=== PATIENT | female | born 1935 | race Caucasian/White ===

== ENCOUNTER 2017-01-09 07:00 | Day surgery (SDC) | payer MEDICARE, BC ==
[~2017-01-09 07:00] MED LIST: Lactated Ringers 1,000 ML IV SCH; Lidocaine 1%/Sod Bicarbonate in NS 8.4% 1 ML Syringe IV PRN; Sodium Chloride 0.9% 10 ML Syringe FLUSH PRN
[2017-01-09] MEDS ORDERED: Propofol 200 MG/20 ML SDV ONE (07:14)
--- NOTE | 2017-01-09 07:24 | PCM.PREANE ---
Preanesthetic Assessment - Anesthesia/Transfusion/Family Hx Anesthesia History: Prior Anesthesia Without Reaction Type of Anesthesia Reaction: Unknown Family History of Anesthesia Reaction: No Transfusion History: Unknown Type of Transfusion Reactions: Reports: Other (see below) - Review of Systems General: No Symptoms Pulmonary: No Symptoms Cardiovascular: No Symptoms, Other (HTN,hyperlipidemia) Gastrointestinal: No symptoms Neurological: No Symptoms Other: Reports: Diabetes - Physical Assessment NPO Status Date: 01/08/17 NPO Status Time: 18:00 Pulse: 70 O2 Sat by Pulse Oximetry: 100 Respiratory Rate: 16 Blood Pressure: 174/77 Weight: 54 kg ASA Class: 2 Mental Status: Alert & Oriented x3 Airway Class: Mallampati = 2 Dentition: Reports: Dentures (upper) Thyro-Mental Finger Breadths: 3 Mouth Opening Finger Breadths: 3 ROM/Head Extension: Full Lungs: Clear to auscultation, Normal respiratory effort Cardiovascular: Regular Rate, Regular Rhythm - Allergies Allergies/Adverse Reactions: Allergies Allergy/AdvReac Type Severity Reaction Status Date / Time No Known Allergies Allergy Verified 01/08/17 16:32 - Blood Blood Available: No Product(s) Available: None - Anesthesia Plan Pre-Op Medication Ordered: None - Acknowledgements Anesthesia Type Planned: MAC Pt an Appropriate Candidate for the Planned Anesthesia: Yes Alternatives and Risks of Anesthesia Discussed w Pt/Guardian: Yes Pt/Guardian Understands and Agrees with Anesthesia Plan: Yes PreAnesthesia Questionnaire HEENT History: Reports: Impaired vision, Other (see below) Other HEENT History: excessive cerumen, wears glasses, upper denture Cardiovascular History: Reports: High cholesterol, Hypertension Respiratory History: Reports: None Gastrointestinal History: Reports: None Genitourinary History: Reports: Other (see below) Other Genitourinary History: UTI, overactive bladder 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: Musculoskeletal History: Reports: Other (see below) Other Musculoskeletal History: osteopenia Neurological History: Reports: Other (see below) Other Neuro History: postherpetic neuralgia Psychiatric History: Reports: None Endocrine/Metabolic History: Reports: Diabetes, type II Hematologic History: Reports: None Immunologic History: Reports: None Oncologic (Cancer) History: Reports: None Dermatologic History: Reports: None - Past Surgical History Head Surgeries/Procedures: Reports: None HEENT Surgical History: Reports: Tonsillectomy Female Surgical History: Reports: section - SUBSTANCE USE Smoking Status *Q: Never Smoker Recreational Drug Use History: No - HOME MEDS Home Medications: Home Meds Alendronate Sodium [Fosamax] 70 mg PO SA 01/08/17 [History] Lisinopril 20 mg PO DAILY 01/08/17 [History] Oxybutynin 5 mg PO DAILY 01/08/17 [History] Pregabalin [Lyrica] 50 mg PO DAILY 01/08/17 [History] Vit A/C/E AC/Znox/Cupric Oxide [Eye Vitamin-Minerals Tablet] 1 tab PO DAILY 10/26 [History] atorvaSTATin Calcium [Atorvastatin Calcium] 20 mg PO BEDTIME 01/08/17 [History] glipiZIDE [Glipizide ER] 5 mg PO DAILY 01/08/17 [History] metFORMIN [Glucophage] 500 mg PO BID 01/08/17 [History] - CURRENT (IN HOUSE) MEDS Current Meds: Current Medications Lactated Ringer's (Ringers, Lactated) 1,000 mls @ 125 mls/hr IV ASDIRECTED TANIA Lidocaine/Sodium Bicarbonate (Buffered Lidocaine 1% In Ns 8.4%) 0.25 ml IV ONETIME PRN PRN Reason: Prior to IV Start Sodium Chloride (Saline Flush) 10 ml FLUSH ASDIRECTED PRN PRN Reason: Keep Vein Open Discontinued Medications Propofol (Diprivan 20 Ml) Confirm Administered Dose 200 mg .ROUTE .STK-MED ONE Stop: 01/09/17 07:15
--- NOTE | 2017-01-09 08:23 | PCM48HPAN ---
Post Anesthesia Note - EVALUATION WITHIN 48HRS OF ANESTHETIC Vital Signs in Normal Range: Yes Patient Participated in Evaluation: Yes Respiratory Function Stable: Yes Airway Patent: Yes Cardiovascular Function Stable: Yes Hydration Status Stable: Yes Pain Control Satisfactory: Yes Nausea and Vomiting Control Satisfactory: Yes Mental Status Recovered: Yes
[2017-01-09 08:29] VITALS: BP 147/65
[2017-01-09] MEDS ORDERED: Glycopyrrolate 0.2 MG/ML 2 ML SDV ONE (08:30)
--- NOTE | 2017-01-09 08:30 | PCM.OPNOTE ---
- General Post-Op/Procedure Note Date of Surgery/Procedure: 01/09/17 Operative Procedure(s): colonoscopy Findings: uncomplicated moderate size sigmoid diverticuli Pre Op Diagnosis: positive Hemoccult Post-Op Diagnosis: uncomplicated sigmoid diverticulosis Anesthesia Technique: MAC, Moderate sedation Primary Surgeon: Marcelino Tellez Pathology: none EBL in mLs: 0 Complications: None Condition: Good Free Text/Narrative:: After adequate IV sedation and analgesia was obtained the patient was placed on her left side. Perianal inspection and digital rectal examination were performed next, and were unremarkable. A lubricated colonoscope was inserted into the rectum and advanced to the cecum without difficulty. The bowel preparation was excellent. The cecum, right colon, transverse, and descending colons were endoscopically normal with no mass lesions or inflammatory changes seen. The sigmoid had moderate size diverticuli scattered throughout its course. The sigmoid musculature was slightly hypertrophied. The rectum in both views was unremarkable. Air was removed as I finished the procedure which she tolerated well. Manager Radiation photographs were taken for the patient and for the record.
== END 2017-01-09 08:46 | disposition home or self-care (01) ==
LOC: JD.SDS 07:00
PROVIDERS: ATTEND Surgery
DX: K57.30 Diverticulosis of large intestine without perforation or abscess without bleeding (principal); I10 Essential (primary) hypertension; E78.5 Hyperlipidemia, unspecified; E11.9 Type 2 diabetes mellitus without complications; Z79.84 Long term (current) use of oral hypoglycemic drugs; Z79.899 Other long term (current) drug therapy; Z98.890 Other specified postprocedural states
CPT/HCPCS: 45378; 82962; J7120; 00810; J2704; J3490

== ENCOUNTER 2021-01-13 08:38 | Emergency (ER) | payer MEDICARE, BC ==
[2021-01-13 09:15] VITALS: BP 135/62; PULSE 72
--- NOTE | 2021-01-13 09:20 | EDM.PDOC ---
ED HPI GENERAL MEDICAL PROBLEM - General Chief Complaint: Back Pain or Injury Stated Complaint: BACK PAIN Time Seen by Provider: 01/13/21 09:19 Source of Information: Reports: Patient History Limitations: Reports: No Limitations - History of Present Illness INITIAL COMMENTS - FREE TEXT/NARRATIVE: 85-year-old female presents to the ED in the accompaniment of her . She reports that she was having pain below her knees into the upper tib-fib's for 2 days and with Tylenol it seemed to go away. Then 3 days ago she developed severe lower back pain. She rates the pain is 8 out of 10. It is limited her mobility severely. She still able to get into bed and sleep. She has a history of osteoporosis. She has been diabetic for many years. No history of compression fractures in her back. Denies fever or chills. Pain is much better if not moving but still rates it as a 4 out of 10. If she is up and walking it 8 or 9 out of 10. Onset: Sudden Onset Date: 01/10/21 Duration: Day(s):, Constant, Getting Worse Location: Reports: Back Quality: Reports: Ache (Pain in the lower back primarily at the thoracolumbar junction.) Severity: Moderate (7-8 out of 10 at rest.) Improves with: Reports: Rest Worsens with: Reports: Movement (Worse with trying to walk and weight-bear.) Context: Reports: Other. Denies: Activity, Exercise, Lifting, Sick Contact, Trauma Associated Symptoms: Reports: Loss of Appetite, Malaise, Weakness. 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 (Seem to help with her lower leg pain but did not help her back pain at all.) Lower Back Pain Score (Numeric/FACES): 8 - Related Data Allergies Allergy/AdvReac Type Severity Reaction Status Date / Time No Known Allergies Allergy Verified 01/13/21 09:09 Home Meds: Home Meds Lisinopril 20 mg PO DAILY 01/08/17 [History] Oxybutynin 5 mg PO DAILY 01/08/17 [History] atorvaSTATin Calcium [Atorvastatin Calcium] 20 mg PO BEDTIME 01/08/17 [History] glipiZIDE [Glipizide ER] 5 mg PO DAILY 01/08/17 [History] metFORMIN [Glucophage] 500 mg PO BID 01/08/17 [History] oxyCODONE HCl/Acetaminophen [Percocet 5-325 mg Tablet] 1 each PO Q4H PRN #28 tablet 01/13/21 [Rx] polyethylene glycoL 3350 [Miralax] 17 gm PO DAILY #1 container 01/13/21 [Rx] Past Medical History HEENT History: Reports: Impaired Vision, Other (See Below) Other HEENT History: excessive cerumen, wears glasses, upper denture Cardiovascular History: Reports: High Cholesterol, Hypertension Respiratory History: Reports: None Gastrointestinal History: Reports: None Genitourinary History: Reports: Other (See Below) Other Genitourinary History: UTI, overactive bladder 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 Para: 6 LMP (Approximate): Menopausal Musculoskeletal History: Reports: Other (See Below) Other Musculoskeletal History: osteopenia Neurological History: Reports: Other (See Below) Other Neuro History: postherpetic neuralgia Psychiatric History: Reports: None Endocrine/Metabolic History: Reports: Diabetes, Type II (Treated with Metformin and glipizide for greater than 10 years.), Osteoporosis, Vitamin D Deficiency Hematologic History: Reports: None Immunologic History: Reports: None Oncologic (Cancer) History: Reports: None Dermatologic History: Reports: None - Past Surgical History Head Surgeries/Procedures: Reports: None HEENT Surgical History: Reports: Tonsillectomy Female Surgical History: Reports: Section Social & Family History - Tobacco Use Tobacco Use Status *Q: Never Tobacco User - Caffeine Use Caffeine Use: Reports: None - Recreational Drug Use Recreational Drug Use: No - Living Situation & Occupation Living situation: Reports: Occupation: Retired ED ROS GENERAL - Review of Systems Review Of Systems: See Below Constitutional: Reports: Malaise, Weakness, Fatigue, Decreased Appetite. Denies: Fever, Chills HEENT: Reports: Glasses, Hearing Loss (Mildly hard of hearing on exam.) Respiratory: Reports: No Symptoms. Denies: Wheezing, Pleuritic Chest Pain, Cough, Sputum Cardiovascular: Reports: Dyspnea on Exertion. Denies: Chest Pain, Blood Pressure Problem, Claudication, Edema, Lightheadedness, Orthopnea Endocrine: Reports: Fatigue (Occasionally.) GI/Abdominal: Reports: Constipation, Decreased Appetite. Denies: Nausea, Vomiting : Reports: Frequency, Other (She reports bladder is much better on oxybutynin. She gets up only once at night to void.) Musculoskeletal: Reports: Neck Pain, Shoulder Pain, Back Pain, Joint Pain (Occasional knee pain.) Skin: Reports: No Symptoms Neurological: Reports: No Symptoms, Difficulty Walking (Due to pain in her back.), Weakness (Due to pain in her back.). Denies: Confusion, Dizziness, Headache, Numbness, Paresthesia, Pre-Existing Deficit, Seizure, Syncope, Tingling, Tremors, Trouble Speaking Psychiatric: Reports: No Symptoms Hematologic/Lymphatic: Reports: No Symptoms Immunologic: Reports: No Symptoms ED EXAM,LOWER BACK PAIN/INJURY - Physical Exam Exam: See Below Exam Limited By: Physical Impairment (Mildly hard of hearing.) General Appearance: Alert, WD/WN, Anxious, Mild Distress, Other (Temperature is 36.2 degrees. Heart rate 72 and sinus. Respiratory is 13 with O2 sats of 98% room air. BP 1 3562.) Eye Exam: Bilateral Eye: Normal Inspection (No blepharal pallor or scleral icterus noted.), PERRL Throat/Mouth: Other (Tongue is very dry and coated and shriveled up. She appears volume depleted. Thanks get this faint smell of ketones on her breath.) Head: Atraumatic, Normocephalic Neck: Normal Inspection, Supple, Non-Tender, Full Range of Motion. No: Lymphade nopathy (L), Lymphadenopathy (R) Respiratory/Chest: No Respiratory Distress, Lungs Clear, Normal Breath Sounds, No Accessory Muscle Use, Other (Patient has marked kyphosis of her thoracic spine and would have a restrictive lung disease component.) Cardiovascular: Normal Peripheral Pulses, Regular Rate, Rhythm, No Edema, No Gallop, No Murmur, No Rub GI/Abdominal: Normal Bowel Sounds, Soft, Non-Tender, No Organomegaly, No Abnormal Bruit, No Mass, Pelvis Stable, Other (History of previous x1.) Back Exam: Decreased Range of Motion (She is not able to forward flex at all.), Vertebral Tenderness (T11-T12 vertebra.), Other (Patient has marked kyphosis of her thoracic spine with associated scoliosis of thoracolumbar spine. Pain is well localized to the thoracolumbar spine I believe at T11. All spinous processes are easily visible.). No: CVA Tenderness (L), CVA Tenderness (R), Muscle Spasm (No paraspinal muscle spasm identified) Extremities: Limited Range of Motion (She has loss of 10 degrees external rotation of both hips combined with arthritic change. Note straight leg raising did not make her back pain any worse.), Other (She has very thin. She has atrophy of quadriceps and calf musculature.). No: Pedal Edema Neurological: Alert, CN II-XII Intact, No Motor/Sensory Deficits, Oriented x 3, Difficulty Walking (Negative). No: Straight Leg Raise (L), Straight Leg Raise (R) (Negative) Psychiatric: Anxious (Mildly anxious.) Skin Exam: Warm, Dry, Intact, Normal Color, No Rash Course - Vital Signs Last Recorded V/S: Last Vital Signs Temp 36.2 C 01/13/21 09:12 Pulse 72 01/13/21 09:12 Resp 13 01/13/21 09:12 BP 135/62 01/13/21 09:12 Pulse Ox 98 01/13/21 09:12 - Orders/Labs/Meds Orders: Active Orders 24 hr Category Date Time Status KETONES,BLOOD [CHEM] Stat Lab 01/13/21 09:45 Received SEDIMENTATION RATE AUTO [HEME] Stat Lab 01/13/21 09:45 Received Sodium Chloride 0.9% [Normal Saline] 1,000 ml Med 01/13/21 09:30 Active IV ASDIRECTED Medication Orders Sodium Chloride (Normal Saline) 1,000 mls @ 150 mls/hr IV ASDIRECTED TANIA Last Admin: 01/13/21 09:45 Dose: 150 mls/hr Documented by: EDI Labs: Laboratory Tests 01/13/21 01/13/21 Range/Units 09:45 09:45 WBC 11.25 H (3.98-10.04) K/mm3 RBC 3.93 L (3.98-5.22) M/mm3 Hgb 12.0 D (11.2-15.7) gm/dl Hct 37.5 (34.1-44.9) % MCV 95.4 H (79.4-94.8) fl MCH 30.5 (25.6-32.2) pg MCHC 32.0 L (32.2-35.5) g/dl RDW Std Deviation 48.9 H (36.4-46.3) fL Plt Count 293 D (182-369) K/mm3 MPV 11.7 (9.4-12.3) fl Neut % (Auto) 89.9 H (34.0-71.1) % Lymph % (Auto) 6.5 L (19.3-51.7) % Long % (Auto) 3.2 L (4.7-12.5) % Eos % (Auto) 0 L (0.7-5.8) Baso % (Auto) 0.1 (0.1-1.2) % Neut # (Auto) 10.12 H (1.56-6.13) K/mm3 Lymph # (Auto) 0.73 L (1.18-3.74) K/mm3 Long # (Auto) 0.36 (0.24-0.36) K/mm3 Eos # (Auto) 0.00 L (0.04-0.36) K/mm3 Baso # (Auto) 0.01 (0.01-0.08) K/mm3 Manual Slide Review Abnormal smear Sodium 143 (136-145) mEq/L Potassium 3.3 L (3.5-5.1) mEq/L Chloride 103 (98-107) mEq/L Carbon Dioxide 17 L D (21-32) mEq/L Anion Gap 26.3 H (5-15) BUN 76 H D (7-18) mg/dL Creatinine 2.0 H (0.55-1.02) mg/dL Est Cr Clr Drug Dosing 15.04 mL/min Estimated GFR (MDRD) 24 (>60) mL/min BUN/Creatinine Ratio 38.0 H (14-18) Glucose 181 H (83-115) mg/dL Calcium 8.4 L (8.5-10.1) mg/dL Total Bilirubin 0.4 (0.2-1.0) mg/dL AST 24 (15-37) U/L ALT 21 (14-59) U/L Alkaline Phosphatase 74 (46-116) U/L C-Reactive Protein 3.1 H* (<1.0) mg/dL Total Protein 7.5 (6.4-8.2) g/dl Albumin 3.6 (3.4-5.0) g/dl Globulin 3.9 gm/dL Albumin/Globulin Ratio 0.9 L (1-2) Meds: Medications Generic Name Dose Route Start Last Admin Trade Name Dion PRN Reason Stop Dose Admin Sodium Chloride 1,000 mls @ 150 mls/hr 01/13/21 09:30 01/13/21 09:45 Normal Saline IV 150 mls/hr ASDIRECTED TANIA Administration Discontinued Medications Generic Name Dose Route Start Last Admin Trade Name Dion PRN Reason Stop Dose Admin Hydromorphone HCl 0.5 mg 01/13/21 09:32 01/13/21 09:45 Hydromorphone 0.5 Mg/0.5 Ml Syringe IVPUSH 01/13/21 09:33 0.5 mg ONETIME ONE Administration Ondansetron HCl 4 mg 01/13/21 09:32 01/13/21 09:45 Ondansetron 4 Mg/2 Ml Sdv IVPUSH 01/13/21 09:33 4 mg ONETIME ONE Administration - Radiology Interpretation Free Text/Narrative:: 85-year-old female presents to the ED in the accompaniment of her . History of spontaneous development of severe low back pain 3 days ago. No relief with Tylenol at home. She has known scoliosis of her thoracolumbar spine. She has kyphosis of her thoracic spine. She denies fever or chills. Tongue is dry and shriveled suggesting volume depletion. Sphinx smell of ketones on her breath. She just estimates she has been diabetic between 10 and 15 years. It is controlled with glipizide and Metformin. She is very thin in appearance. Atrophy of musculature lower extremities appreciated as well as upper extremities. Pain in her back appears to be localized more to the thoracolumbar spine. Plan IV normal saline at 150 mils per hour. Routine labs to be done including serum ketones. Sed rate as well. She will have CT of the thoracolumbar spine. Given Dilaudid 0.5 mg IV with Zofran 4 mg IV for pain relief which she rates as 8 out of 10. - Re-Assessments/Exams Free Text/Narrative Re-Assessment/Exam: 01/13/21 11:15: CT thoracic spine reveals vertebral body heights and disc spaces are fairly well-maintained. Mild scattered endplate osteophytes are appreciated. No fractures are identified in the thoracic spine. No abnormal subluxation is noted. Scattered degenerative apophyseal changes seen. Lungs show a small nodule within the superior segment of the left lower lung measuring 1.0 cm. Mild scoliosis is also appreciated. Radiologist recommends follow-up noncontrast chest CT study in 6 months time to follow the pulmonary nodule. CT of the lumbar spine reveals a fairly severe compression fracture at the lumbar 1 vertebra which appears acute and this correlates where her pain is. Posterior bowing of the L1 vertebra is noted into the central canal up to 4.5 mm. Central canal appears to be otherwise maintained. Neural foramina at L1-L2 are narrowed. Posterior disc space narrowing is noted at the L2-L3 level. Slight circumferential disc bulge is also appreciated. Mild degenerative apophyseal changes seen. No central canal stenosis noted. Mild bilateral neuroforaminal stenosis is seen. At the L3-4 disc shows mild post erior narrowing. Slight circumferential disc bulge is also appreciated. Mild degenerative apophyseal changes are appreciated. No central canal stenosis or neural foraminal stenosis is seen. At the L4-5 level shows circumferential disc bulge. Severe degenerative apophyseal changes noted with which projects into the central canal causing lateral canal stenosis. Neuroforamina are patent where the nerve roots exit. At the L5-S1 level disc is narrowed with vacuum disc phenomena. No central canal stenosis is seen. Neuroforamina shows narrowing on both sides. 01/13/21 11:28 I have discussed the findings of the CT reports with the patient and her . Plan will be to place her on Percocet tab 5 /325 mg strength. She will take 1 tablet every 4-6 hours as needed for pain relief. She can also try plain Tylenol but it is unlikely to provide much benefit as she appreciated the last few days. I have asked her to follow-up with her primary care provider in [place] early next week to arrange a follow-up appointment with neurosurgeon in regards to her compression fracture and the possibility of a kyphoplasty. Ideally this should be Dr. Monk at [facility] in [place]. I believe Dr. Bazzi neurosurgeon at [facility] also performs kyphoplasty. Her bones are extremely osteoporotic and she would benefit from biphosphonate treatment ideally Prolia twice a year. Ideally a bone density test should be done before starting the biphosphonate's. Patient will also be placed on MiraLAX powder 17 g once daily to prevent constipation from occurring. Departure - Departure Time of Disposition: 11:31 Disposition: Home, Self-Care 01 Condition: Fair Clinical Impression: Closed compression fracture of body of L1 vertebra Osteoporosis Qualifiers: Osteoporosis type: age-related Presence of current pathological fracture: with current pathological fracture Encounter type: initial encounter Qualified Code(s): M80.00XA - Age-related osteoporosis with current pathological fracture, unspecified site, initial encounter for fracture - Discharge Information *PRESCRIPTION DRUG MONITORING PROGRAM REVIEWED*: Not Applicable *COPY OF PRESCRIPTION DRUG MONITORING REPORT IN PATIENT PETE: Not Applicable Prescriptions: polyethylene glycoL 3350 [Miralax] 17 gm PO DAILY #1 container oxyCODONE HCl/Acetaminophen [Percocet 5-325 mg Tablet] 1 each PO Q4H PRN #28 tablet PRN Reason: pain relief. Instructions: Osteoporosis, Eating Plan for Osteoporosis, Lumbar Spine Fracture Referrals: PCP,Not In Area [Primary Care Provider] - Forms: ED Department Discharge Additional Instructions: Evaluation in the emergency room today in regards to acute onset of severe low back pain 2 days ago. Examination reveals pain coming from the junction between the upper or thoracic spine and the lower back called the lumbar spine. CT scans reveal diffuse osteoporosis throughout all spine bones. There is a vertebral compression fracture at the lumbar 1 vertebra which is quite severe. This is the cause of current severe pain in your back. Treatment is time to heal. Usually these bones will heal up on their own over a period of 8 to 12 weeks. Avoid any forward flexion for at least 6 weeks. Treatment is pain relief with Percocet tabs 1 tablet every 4-6 hours necessary for pain relief. You may need these for the first 10 to 14 days and then usually can get by with Tylenol. Use MiraLAX powder 17 g once daily while on the pain medication to prevent constipation from occurring. Suggest follow-up with your primary care provider early next week for review of back pain and decision as to whether or not you wish a referral to a back surgeon in [place] who could perform a kyphoplasty and improve pain in this regard. It is also my opinion that you need further investigations by way of bone densitometry to assess the severity of your osteoporosis and start biphosphonate medication to prevent further compression fractures. Sepsis Event Note (ED) - Evaluation Sepsis Screening Result: No Definite Risk - Focused Exam Vital Signs: Vital Signs Temp Pulse Resp BP Pulse Ox 01/13/21 09:12 36.2 C 72 13 135/62 98 - My Orders Last 24 Hours: My Active Orders 01/13/21 09:30 Sodium Chloride 0.9% [Normal Saline] 1,000 ml IV ASDIRECTED 01/13/21 09:45 KETONES,BLOOD [CHEM] Stat SEDIMENTATION RATE AUTO [HEME] Stat - Assessment/Plan Last 24 Hours: My Active Orders 01/13/21 09:30 Sodium Chloride 0.9% [Normal Saline] 1,000 ml IV ASDIRECTED 01/13/21 09:45 KETONES,BLOOD [CHEM] Stat SEDIMENTATION RATE AUTO [HEME] Stat
[2021-01-13] MEDS ORDERED: Sodium Chloride 0.9% 1,000 ML IV SCH (09:30)
[2021-01-13] MEDS ORDERED: HYDROmorphone 0.5 MG/0.5 ML Syringe IVPUSH ONE (09:32)
[2021-01-13] MEDS ORDERED: Ondansetron 4 MG/2 ML SDV IVPUSH ONE (09:32)
--- NOTE | 2021-01-13 10:41 | CT ---
CT lumbar spine Technique: Multiple axial sections through the lumbar spine were obtained. Reconstructed coronal and sagittal images were obtained. Comparison: No prior lumbar spine imaging is available. There is fairly severe compression deformity within L1 which could be fairly acute. Posterior bowing of L1 is noted into the central canal up to 4.5 mm. Central canal appears to be otherwise maintained. Neural foramina at L1-2 are narrowed. Posterior disc space narrowing is noted at L2-3. Slight circumferential disc bulge is noted. Mild degenerative apophyseal change is seen. No central canal stenosis is noted. Mild bilateral neural foraminal stenosis is seen. L3-4 disc shows posterior narrowing. Slight circumferential disc bulge is noted. Mild degenerative apophyseal change is seen. No central canal stenosis or neural foraminal stenosis is seen. L4-5 shows circumferential disc bulge. Severe degenerative apophyseal change is noted which projects into the central canal causing lateral canal stenosis. Neural foramina are patent where the nerve roots exit. L5-S1 disc is narrowed with vacuum disc phenomena. No central canal stenosis is seen. Neural foramina show narrowing on both sides. Impression: 1. Fairly severe compression deformity of L1 which appears to be fairly acute. 2. Degenerative change as noted above which is most likely chronic. Diagnostic code #3
--- NOTE | 2021-01-13 10:41 | CT ---
CT thoracic spine Technique: Multiple axial sections through the thoracic spine were obtained. Reconstructed coronal and sagittal were obtained. Comparison: No prior thoracic spine imaging. Findings: Vertebral body heights and disc spaces are fairly well maintained. Mild scattered endplate osteophytes are seen. No fracture is seen. No abnormal subluxation is noted. Scattered degenerative apophyseal change is seen. Lungs show a small nodule within the superior segment of the left lower lung measuring 1.0 cm. Mild scoliosis is also noted. Impression: 1. Mild diffuse degenerative change. 2. 1 cm nodule within the superior segment of the left lower lung. Recommend follow-up noncontrast chest CT study in 6 months. 3. Nothing acute is appreciated on CT study of the thoracic spine. Diagnostic code #9
== END 2021-01-13 13:08 | disposition home or self-care (01) ==
LOC: JD.ED 08:38
DX: S32.010A Wedge compression fracture of first lumbar vertebra, initial encounter for closed fracture (principal); M80.00XA Age-related osteoporosis with current pathological fracture, unspecified site, initial encounter for fracture; E78.00 Pure hypercholesterolemia, unspecified; I10 Essential (primary) hypertension; E11.9 Type 2 diabetes mellitus without complications; Z79.84 Long term (current) use of oral hypoglycemic drugs; Z79.899 Other long term (current) drug therapy; X58.XXXA Exposure to other specified factors, initial encounter
CPT/HCPCS: 36415; 72128; 72131; 80053; 82009; 85025; 85652; 86140; 96374; 96375; 99284; J1170; J2405; J7030

== ENCOUNTER 2021-09-08 13:58 | Emergency (ER) | payer MEDICARE, BC ==
--- NOTE | 2021-09-08 15:00 | EDM.PDOC ---
ED HPI GENERAL MEDICAL PROBLEM - General Chief Complaint: Head Injury Stated Complaint: HEAD INJURY FROM FALL Time Seen by Provider: 09/08/21 14:47 Source of Information: Reports: Patient, EMS, Family (spouse) History Limitations: Reports: Altered Mental Status - History of Present Illness INITIAL COMMENTS - FREE TEXT/NARRATIVE: 86-year-old female presents to the ED in the accompaniment of her . The history suggests that sometime this morning somewhere between 1030 and 11:30 AM she fell in the kitchen and is unclear what she struck with her left forehead which has a very large hematoma in this area. Patient has dementia and she cannot remember how or why she fell. She is disoriented to time. She has a walker at home but apparently rarely uses it within the house but tends to walk along the wall to maintain her balance. Apparently she falls frequently as she has ecchymoses that is about a week old over her left superior and posterior shoulder. She is not on any blood thinners and her medications have not been changed recently. She denies any cervical neck pain. She obeys all commands quite easily. She denies any significant headache. She denies nausea or vomiting. She denies any chest pain in the last week or so. Onset: Today, Sudden Onset Date: 09/08/21 Onset Time: 10:30 (Gases she fell somewhere between 1030 and 11:30 AM. Her had stepped out and was not at home when injury occurred) Duration: Hour(s): Location: Reports: Head (Large contusion to the left forehead) Quality: Reports: Ache Severity: Mild Improves with: Reports: None Worsens with: Reports: Other Context: Reports: Trauma (Poorly tripped and fell in the kitchen at home. Unsure what she hit her head on.). Denies: Activity (Increased pain with touching the area.), Exercise, Lifting, Sick Contact Associated Symptoms: Reports: Confusion (Patient has dementia and is she is confused as to the date and time. She knows she is at the hospital.), Malaise, Weakness (Occultly walking. Usually gets around with the aid of a walker. Has arthritic changes in her knees.). 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 (see below) (None.) - Related Data Allergies Allergy/AdvReac Type Severity Reaction Status Date / Time No Known Allergies Allergy Verified 09/09/21 18:39 Home Meds: Home Meds Lisinopril 20 mg PO DAILY 01/08/17 [History] Oxybutynin 5 mg PO DAILY 01/08/17 [History] atorvaSTATin Calcium [Atorvastatin Calcium] 20 mg PO BEDTIME 01/08/17 [History] glipiZIDE [Glipizide ER] 5 mg PO DAILY 01/08/17 [History] metFORMIN [Glucophage] 500 mg PO BID 01/08/17 [History] polyethylene glycoL 3350 [Miralax] 17 gm PO DAILY #1 container 01/13/21 [Rx] amLODIPine Besylate [Norvasc] 10 mg PO DAILY #30 tablet 09/08/21 [Rx] Past Medical History HEENT History: Reports: Impaired Vision, Other (See Below) Other HEENT History: excessive cerumen, wears glasses, upper denture Cardiovascular History: Reports: High Cholesterol, Hypertension Respiratory History: Reports: None Gastrointestinal History: Reports: None Genitourinary History: Reports: Other (See Below) Other Genitourinary History: UTI, overactive bladder 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: Musculoskeletal History: Reports: Other (See Below) Other Musculoskeletal History: osteopenia Neurological History: Reports: Other (See Below) Other Neuro History: postherpetic neuralgia Psychiatric History: Reports: None Endocrine/Metabolic History: Reports: Diabetes, Type II (Treated with Metformin and glipizide for greater than 10 years.), Osteoporosis, Vitamin D Deficiency Hematologic History: Reports: None Immunologic History: Reports: None Oncologic (Cancer) History: Reports: None Dermatologic History: Reports: None - Past Surgical History Head Surgeries/Procedures: Reports: None HEENT Surgical History: Reports: Tonsillectomy Female Surgical History: Reports: Section Social & Family History - Caffeine Use Caffeine Use: Reports: None - Living Situation & Occupation Living situation: Reports: , with Spouse Occupation: Retired ED ROS GENERAL - Review of Systems Review Of Systems: See Below (In their own home.) Constitutional: Reports: Malaise, Weakness, Fatigue, Decreased Appetite. Denies: Fever, Chills HEENT: Reports: Glasses, Hearing Loss, Other (Has bilateral cataracts). Denies: Contact Lenses Respiratory: Reports: Shortness of Breath. Denies: Wheezing, Pleuritic Chest Pain, Cough (At times), Sputum, Hemoptysis Cardiovascular: Reports: Blood Pressure Problem (Is on lisinopril 20 mg daily), Dyspnea on Exertion, Lightheadedness (More dizziness than lightheadedness.), Syncope (On occasion). Denies: Chest Pain, Claudication, Orthopnea, Palpitations, PND, Other Endocrine: Reports: Fatigue GI/Abdominal: Reports: Constipation : Reports: Frequency (Urge and stress components), Incontinence Musculoskeletal: Reports: Joint Pain (Knees hips low back neck shoulders at times.) Skin: Reports: Bruising (Bruises easily) Neurological: Reports: No Symptoms, Dizziness. Denies: Confusion, Headache, Numbness, Paresthesia, Seizure, Syncope, Tingling, Tremors, Trouble Speaking, Change in Speech, Gait Disturbance, Other Psychiatric: Reports: No Symptoms Hematologic/Lymphatic: Reports: No Symptoms Immunologic: Reports: No Symptoms ED EXAM, HEAD INJURY - Physical Exam Exam: See Below Exam Limited By: Physical Impairment General Appearance: Alert, WD/WN Head: Scalp Ecchymosis (Large ecchymoses left frontal forehead with a), Scalp He matoma ( large hematoma dark purple in color in this area left frontal forehead). No: Facial Abrasions Nexus Criteria: No: Posterior, Midline Cervical Tenderness, Evidence of Intoxication, Altered Level of Consciousness, Focal Neurological Deficit, Painful Distraction Injuries Eyes: Bilateral Eye: Normal Inspection (Bilateral fairly dense cataracts bilaterally) Nose: Normal Inspection Throat/Mouth: Normal Inspection, Normal Lips, Normal Voice, Other (No obvious dental or tongue injuries. No mandibular injuries.). No: Normal Teeth Neck: Non-Tender, Full Range of Motion, Normal Alignment, Normal Inspection, Other Respiratory: No Respiratory Distress (Full unopposed range of motion.), Lungs Clear, Normal Breath Sounds, Chest Non-Tender Cardiovascular: Normal Peripheral Pulses, Regular Rate, Rhythm, No Edema, No Ga llop, No JVD, No Rub GI/Abdominal Exam: Normal Bowel Sounds, Soft, Non-Tender, No Organomegaly, No Abnormal Bruit Back Exam: Other (Kyphosis thoracic spine) Extremities: No Pedal Edema ( She can raise her arm above her head with no problem. She has full pronation supination at both elbows no injuries to her wrists hands identified. No injuries to her lower extremities identified. Evidence of osteoarthritic changes both knees and both hips), Other (She has ecchymoses superior aspect of her left shoulder and upper shoulder blade on the left side which appears to be a week old.) Neurologic: No Motor/Sensory Deficits, Alert. No: Oriented x 3 (Oriented only to place. Disoriented to time of day and week) Skin: Normal Color, Warm/Dry - Mobile Coma Score Best Eye Response (Mobile): (4) Open Spontaneously Best Verbal Response (Mobile): (4) Confused Conversation Best Motor Response (Mobile): (6) Obeys Commands Mobile Total: 14 #1 Interpretation EKG Date: 09/08/21 Time: 15:16 Rhythm: NSR Rate (Beats/Min): 88 [place]: LAD-Left [place] Deviation (-63 degrees) P-Wave: Present QRS: Other (Left ventricular hypertrophy pattern with strain.) ST-T: Other (Diffuse early repolarization pattern. T wave inversion lead I and aVL) QT: Prolonged (Markedly prolonged) EKG Interpretation Comments: Abnormal ECG Course - Vital Signs Last Recorded V/S: Last Vital Signs Temp 35.8 C L 09/08/21 17:26 Pulse 118 H 09/08/21 17:26 Resp 18 09/08/21 17:26 BP 179/90 H 09/08/21 17:53 Pulse Ox 100 09/08/21 17:26 - Orders/Labs/Meds Labs: Laboratory Tests 09/08/21 09/08/21 09/08/21 Range/Units 14:40 14:40 14:40 WBC 15.05 H (3.98-10.04) K/mm3 RBC 4.37 (3.98-5.22) M/mm3 Hgb 12.8 (11.2-15.7) gm/dl Hct 40.7 (34.1-44.9) % MCV 93.1 (79.4-94.8) fl MCH 29.3 (25.6-32.2) pg MCHC 31.4 L (32.2-35.5) g/dl RDW Std Deviation 50.3 H (36.4-46.3) fL Plt Count 306 (182-369) K/mm3 MPV 12.0 (9.4-12.3) fl Neut % (Auto) 88.4 H (34.0-71.1) % Lymph % (Auto) 6.4 L (19.3-51.7) % Bowman % (Auto) 4.6 L (4.7-12.5) % Eos % (Auto) 0.1 L (0.7-5.8) Baso % (Auto) 0.2 (0.1-1.2) % Neut # (Auto) 13.31 H (1.56-6.13) K/mm3 Lymph # (Auto) 0.96 L (1.18-3.74) K/mm3 Bowman # (Auto) 0.69 H (0.24-0.36) K/mm3 Eos # (Auto) 0.02 L (0.04-0.36) K/mm3 Baso # (Auto) 0.03 (0.01-0.08) K/mm3 PT 10.2 (9.7-12.0) SECONDS INR < 0.93 APTT 23.7 (21.7-31.4) SECONDS Sodium (136-145) mEq/L Potassium (3.5-5.1) mEq/L Chloride (98-107) mEq/L Carbon Dioxide (21-32) mEq/L Anion Gap (5-15) BUN (7-18) mg/dL Creatinine (0.55-1.02) mg/dL Est Cr Clr Drug Dosing mL/min Estimated GFR (MDRD) (>60) mL/min BUN/Creatinine Ratio (14-18) Glucose (70-99) mg/dL POC Glucose 321 H (70-99) mg/dL Hemoglobin A1c ( - 5.6) % Calcium (8.5-10.1) mg/dL Total Bilirubin (0.2-1.0) mg/dL AST (15-37) U/L ALT (14-59) U/L Alkaline Phosphatase (46-116) U/L Creatine Kinase (26-192) U/L CK-MB (CK-2) (0-3.6) ng/ml Troponin I (0.00-0.056) ng/mL C-Reactive Protein (<1.0) mg/dL Total Protein (6.4-8.2) g/dl Albumin (3.4-5.0) g/dl Globulin gm/dL Albumin/Globulin Ratio (1-2) Urine Color (Yellow) Urine Appearance (Clear) Urine pH (5.0-8.0) Ur Specific [place] (1.005-1.030) Urine Protein (Negative) Urine Glucose (UA) (Negative) Urine Ketones (Negative) Urine Occult Blood (Negative) Urine Nitrite (Negative) Urine Bilirubin (Negative) Urine Urobilinogen (0.2-1.0) Ur Leukocyte Esterase (Negative) U Hyaline Cast (Auto) (0-5) /lpf Urine RBC (0-5) /hpf Urine WBC (0-5) /hpf Ur Epithelial Cells (0-5) /hpf Urine Bacteria (FEW) /hpf Urine Mucus (FEW) /hpf 09/08/21 09/08/21 09/08/21 Range/Units 14:40 14:40 14:40 WBC (3.98-10.04) K/mm3 RBC (3.98-5.22) M/mm3 Hgb (11.2-15.7) gm/dl Hct (34.1-44.9) % MCV (79.4-94.8) fl MCH (25.6-32.2) pg MCHC (32.2-35.5) g/dl RDW Std Deviation (36.4-46.3) fL Plt Count (182-369) K/mm3 MPV (9.4-12.3) fl Neut % (Auto) (34.0-71.1) % Lymph % (Auto) (19.3-51.7) % Bowman % (Auto) (4.7-12.5) % Eos % (Auto) (0.7-5.8) Baso % (Auto) (0.1-1.2) % Neut # (Auto) (1.56-6.13) K/mm3 Lymph # (Auto) (1.18-3.74) K/mm3 Bowman # (Auto) (0.24-0.36) K/mm3 Eos # (Auto) (0.04-0.36) K/mm3 Baso # (Auto) (0.01-0.08) K/mm3 PT (9.7-12.0) SECONDS INR APTT (21.7-31.4) SECONDS Sodium 138 (136-145) mEq/L Potassium 3.6 (3.5-5.1) mEq/L Chloride 99 (98-107) mEq/L Carbon Dioxide 27 D (21-32) mEq/L Anion Gap 15.6 H (5-15) BUN 17 D (7-18) mg/dL Creatinine 0.9 (0.55-1.02) mg/dL Est Cr Clr Drug Dosing 32.40 mL/min Estimated GFR (MDRD) 60 (>60) mL/min BUN/Creatinine Ratio 18.9 H (14-18) Glucose 341 H (70-99) mg/dL POC Glucose (70-99) mg/dL Hemoglobin A1c 9.4 H ( - 5.6) % Calcium 9.4 (8.5-10.1) mg/dL Total Bilirubin 0.5 (0.2-1.0) mg/dL AST 18 (15-37) U/L ALT 29 (14-59) U/L Alkaline Phosphatase 147 H (46-116) U/L Creatine Kinase 121 (26-192) U/L CK-MB (CK-2) 2.2 (0-3.6) ng/ml Troponin I 0.298 H* (0.00-0.056) ng/mL C-Reactive Protein <0.2 (<1.0) mg/dL Total Protein 8.1 (6.4-8.2) g/dl Albumin 3.9 (3.4-5.0) g/dl Globulin 4.2 gm/dL Albumin/Globulin Ratio 0.9 L (1-2) Urine Color (Yellow) Urine Appearance (Clear) Urine pH (5.0-8.0) Ur Specific [place] (1.005-1.030) Urine Protein (Negative) Urine Glucose (UA) (Negative) Urine Ketones (Negative) Urine Occult Blood (Negative) Urine Nitrite (Negative) Urine Bilirubin (Negative) Urine Urobilinogen (0.2-1.0) Ur Leukocyte Esterase (Negative) U Hyaline Cast (Auto) (0-5) /lpf Urine RBC (0-5) /hpf Urine WBC (0-5) /hpf Ur Epithelial Cells (0-5) /hpf Urine Bacteria (FEW) /hpf Urine Mucus (FEW) /hpf 12/31/21 Range/Units 15:50 WBC (3.98-10.04) K/mm3 RBC (3.98-5.22) M/mm3 Hgb (11.2-15.7) gm/dl Hct (34.1-44.9) % MCV (79.4-94.8) fl MCH (25.6-32.2) pg MCHC (32.2-35.5) g/dl RDW Std Deviation (36.4-46.3) fL Plt Count (182-369) K/mm3 MPV (9.4-12.3) fl Neut % (Auto) (34.0-71.1) % Lymph % (Auto) (19.3-51.7) % Bowman % (Auto) (4.7-12.5) % Eos % (Auto) (0.7-5.8) Baso % (Auto) (0.1-1.2) % Neut # (Auto) (1.56-6.13) K/mm3 Lymph # (Auto) (1.18-3.74) K/mm3 Bowman # (Auto) (0.24-0.36) K/mm3 Eos # (Auto) (0.04-0.36) K/mm3 Baso # (Auto) (0.01-0.08) K/mm3 PT (9.7-12.0) SECONDS INR APTT (21.7-31.4) SECONDS Sodium (136-145) mEq/L Potassium (3.5-5.1) mEq/L Chloride (98-107) mEq/L Carbon Dioxide (21-32) mEq/L Anion Gap (5-15) BUN (7-18) mg/dL Creatinine (0.55-1.02) mg/dL Est Cr Clr Drug Dosing mL/min Estimated GFR (MDRD) (>60) mL/min BUN/Creatinine Ratio (14-18) Glucose (70-99) mg/dL POC Glucose (70-99) mg/dL Hemoglobin A1c ( - 5.6) % Calcium (8.5-10.1) mg/dL Total Bilirubin (0.2-1.0) mg/dL AST (15-37) U/L ALT (14-59) U/L Alkaline Phosphatase (46-116) U/L Creatine Kinase (26-192) U/L CK-MB (CK-2) (0-3.6) ng/ml Troponin I (0.00-0.056) ng/mL C-Reactive Protein (<1.0) mg/dL Total Protein (6.4-8.2) g/dl Albumin (3.4-5.0) g/dl Globulin gm/dL Albumin/Globulin Ratio (1-2) Urine Color Yellow (Yellow) Urine Appearance Clear (Clear) Urine pH 5.0 (5.0-8.0) Ur Specific [place] 1.020 (1.005-1.030) Urine Protein 3+ H (Negative) Urine Glucose (UA) 2+ H (Negative) Urine Ketones Trace H (Negative) Urine Occult Blood 2+ H (Negative) Urine Nitrite Negative (Negative) Urine Bilirubin Negative (Negative) Urine Urobilinogen 0.2 (0.2-1.0) Ur Leukocyte Esterase Negative (Negative) U Hyaline Cast (Auto) 0-5 (0-5) /lpf Urine RBC 0-5 (0-5) /hpf Urine WBC 0-5 (0-5) /hpf Ur Epithelial Cells 0-5 (0-5) /hpf Urine Bacteria Few (FEW) /hpf Urine Mucus Moderate H (FEW) /hpf Meds: Medications Discontinued Medications Generic Name Dose Route Start Last Admin Trade Name Freq PRN Reason Stop Dose Admin Amlodipine Besylate 10 mg 09/08/21 15:42 09/08/21 16:16 Amlodipine 10 Mg Tab PO 09/08/21 15:43 10 mg ONETIME ONE Administration Amlodipine Besylate 5 mg 09/08/21 17:47 09/08/21 17:53 Amlodipine 5 Mg Tab PO 09/08/21 17:48 5 mg ONETIME ONE Administration Hydralazine HCl 10 mg 09/08/21 15:41 09/08/21 16:16 Hydralazine 20 Mg/Ml Sdv IVPUSH 09/08/21 15:42 10 mg ONETIME ONE Administration Prazosin HCl 1 mg 09/08/21 21:00 Prazosin 1 Mg Cap PO BEDTIME TANIA Sodium Chloride 10 ml 09/08/21 15:41 09/08/21 16:18 Sodium Chloride 0.9% 10 Ml Syringe FLUSH 10 ml ASDIRECTED PRN Administration Keep Vein Open - Radiology Interpretation Free Text/Narrative:: 86-year-old female presents to the ED in the accompaniment of her . He stepped out of the home for a period of time this morning and she fell in the kitchen somewhere between 1030 and 11:30 AM. When he returned she had a large hematoma on her left forehead but could not recollect how or why she had fallen. Patient clinically has moderate dementia changes and tends to walk along the wall due to poor balance. She has weakness in her lower extremities and she blames arthritic changes in her knees for her problems. She does not see the doctor very often. Initial blood pressure in the emergency room was 223/124. She denies headache nausea vomiting. The left upper eyelid is starting to become ecchymotic and the left eye is nearly half closed at this time. She denies any pain in her cervical spine and she has full range of motion on examination. She has no injuries to her upper extremities other than old ecchymoses dorsal lateral left shoulder and upper shoulder blade which appears to be about a week old. She relates that she did fall a period of time ago. Plan she will have CT of her head performed. ECG and lab work carried out. She denies feeling ill with cough or sputum production. No fever or chills. Denies any genitourinary complaints although she is prone to urgency incontinence. She states she just cannot get there quick enough. - Re-Assessments/Exams Free Text/Narrative Re-Assessment/Exam: 09/08/21 15:52 White count is elevated at 15.05 with the auto differential revealing 88.4% neutrophils. Hemoglobin is 12.8 with hematocrit of 40.7 platelet count is 306,000. Sodium 138 with a potassium of 3.6. Chloride is 99 with a bicarb of 27. Anion gap is 15.6. BUN is 17 with a creatinine of 0.9 and a GFR of 60. BUN/creatinine ratio is mildly elevated at 18.9. Glucose is elevated at 341. The bedside bedside glucose was 321. Patient is a known diabetic she believes for greater than 10 years. Calcium was 9.4 liver function is normal other than slightly elevated alkaline phosphatase at 147 serum trop onin is elevated at 0.298 concerning for possible underlying myocardial infarction. C-reactive protein is less than 0.2 total protein 8.1 with an albumin fraction of 3.9 09/08/21 15:52 Her blood pressure remains elevated. Currently 204/124. She will therefore have a saline lock started and be given Apresoline 10 mg IV and Norvasc 10 mg p.o. we will look for a potential source of infection due to her elevated white count with a left shift. This will include a cath urine specimen and a chest x-ray. 09/08/21 15:54 CT of the head without contrast has been completed. It reveals a large hematoma left frontal cortex as is apparent visually. No fracture of the skull is appreciated. The brain reveals diffuse increase in the convexities and prominence of the sulci and lateral ventricles compatible with the patient's age. Diffuse perivascular disease is appreciated both basal ganglia secondary to small vessel ischemic change. No obvious cerebral infarct is evident. No intracranial bleeding is evident. Slight vascular calcification is seen within the vertebral arteries and within the carotid arteries bilaterally. Minimal diminished density is noted within the periventricular white matter most likely representing small vessel ischemic demyelination changes. There is no evidence of intracranial hemorrhage or stroke slight deformity is seen within the nasal bone. This could represent an acute fracture but the patient has no signs or symptoms of nasal injury at this time and appears to be old visualized paranasal sinuses and mastoid sinuses are clear. 09/08/21 16:16 chest x-ray done portably reveals mildly hyperinflated lung joy bilaterally. Slight prominence of both pulmonary arteries evident. Slight tortuosity of the thoracic aorta is appreciated. Cardiac silhouette and mediastinum are normal. Pulmonary vasculature is slightly congested. Lung parenchyma are otherwise clear. Bony structures reveal significant osteopenia with significant scoliosis of the thoracic spine concave to the left. I have no reason to account for her elevated troponin I at 0.298 which is significant. She has had no chest pain and no significant ECG changes are evident. The CK-MB fraction is also normal. It would most likely be prudent to have her have an ECG stress test but she is age 86 with early dementia signs and symptoms. Her and herself did not wish to pursue further investigation via cardiology services at this time. Her elevated troponin may be due to stress on the heart from significantly elevated blood pressure. 09/08/21 17:15 Urinalysis shows 3+ proteinuria 2+ glucosuria and 2+ occult blood. Leukocyte esterase is negative and the slide shows no signs of infection. Her CK-MB fraction is 2.2. Total CPK is 121. I have noted for no reason for an elevated white count as she does not appear to have any infection. Chest x-ray reveals no signs of infection. Blood pressure has come down to 171/81. She will be discharged on amlodipine 10 mg once daily at bedtime for now. She will continue lisinopril 20 mg in the morning. She will need follow- up in the clinic in a week's time. [facility] or in the pharmacy will be open tomorrow from 1 to 3 PM. I will therefore send a prescription for Norvasc 10 mg once daily at bedtime to that facility and her will come and pick it up tomorrow afternoon. Departure - Departure Time of Disposition: 17:17 Disposition: Home, Self-Care 01 Condition: Fair Clinical Impression: Uncontrolled hypertension, Elevated troponin I measurement Fall as cause of accidental injury at home as place of occurrence Qualifiers: Encounter type: initial encounter Qualified Code(s): W19.XXXA - Unspecified fall, initial encounter Contusion of forehead Qualifiers: Encounter type: initial encounter Qualified Code(s): S00.83XA - Contusion of other part of head, initial encounter - Discharge Information *PRESCRIPTION DRUG MONITORING PROGRAM REVIEWED*: Not Applicable *COPY OF PRESCRIPTION DRUG MONITORING REPORT IN PATIENT PETE: Not Applicable Prescriptions: amLODIPine Besylate [Norvasc] 10 mg PO DAILY #30 tablet Instructions: Facial or Scalp Contusion, Hypertension, Adult, Clco-eq-Cved, Managing Your Hypertension Referrals: PCP,None [Primary Care Provider] - Forms: ED Department Discharge Additional Instructions: Evaluation in the emergency room today in regards to a fall at home this morning with blunt trauma to the left forehead and a very large hematoma formation in this area. CT scan of the head reveals changes in the brain compatible with age-related changes and early dementia. No intracranial bleeding or mass-effect or skull fracture was identified. Chest x-ray reveals normal-sized heart and clear lung joy with some emphysema changes. Blood pressure was identified to be markedly elevated at 224/123 and did not come down over the ensuing hour. You were therefore treated with intravenous medication hydralazine 10 mg IV and oral amlodipine 10 mg. You are to continue your lisinopril every morning and take amlodipine 10 mg tablet at bedtime. Today she will need to take an blood pressure pill called prazosin 1 mg tablet at bedtime. Expect her left eye to be closed due to swelling tomorrow morning and then start open over another 24 hours. The hematoma and bruising of your left face will take about 21 days to go away completely. Suggest follow-up with your personal care physician in 7 to 10 days time for blood pressure checkup. Sepsis Event Note (ED) - Evaluation Sepsis Screening Result: No Definite Risk
[2021-09-08] MEDS ORDERED: Sodium Chloride 0.9% 10 ML Syringe FLUSH PRN (15:41)
[2021-09-08] MEDS ORDERED: hydrALAZINE 20 MG/ML SDV IVPUSH ONE (15:41)
[2021-09-08] MEDS ORDERED: amLODIPine 10 MG Tab PO ONE (15:42)
[2021-09-08 15:59] LABS: HEMOGLOBIN A1C 9.4 %
--- NOTE | 2021-09-08 16:13 | CT ---
Head CT Technique: Multiple axial sections through the brain were obtained. Intravenous contrast was not utilized. Reconstructed coronal and sagittal images were obtained. Comparison: No prior intracranial imaging is available. Findings: Hematoma is noted within the left frontal scalp. Ventricles along with basal cisterns and sulci over the convexities are moderately prominent. Minimal basal ganglia calcification is noted. Slight vascular calcification is seen within the vertebral arteries and within the carotid arteries. Minimal diminished density is noted within the periventricular white matter most likely representing small vessel ischemic demyelination change. There is no evidence of intracranial hemorrhage. No midline shift or mass-effect is seen. Bone window settings were reviewed. Slight deformity is seen within the nasal bone. This could represent an acute fracture if patient has symptoms. Findings otherwise could be chronic. Visualized paranasal sinuses and mastoid sinuses are clear. No acute calvarial abnormality is appreciated. Impression: 1. Slight deformity of the nasal bone. This could be old or acute. Please correlate with the patient's symptoms. 2. Soft tissue hematoma within the left frontal scalp. 3. Senescent change as noted above. No acute intracranial abnormality is seen. Diagnostic code #2
--- NOTE | 2021-09-08 16:23 | CR ---
Chest: Portable view of the chest was obtained. Comparison: Prior chest x-ray of 07/14/09. Heart size is normal. Slight tortuosity of the thoracic aorta is seen. Lungs are clear with no acute parenchymal change. Bony structures are osteopenic. Mild scoliosis is noted within the spine. Scattered disc space narrowing is also noted within the spine. Impression: 1. Findings as described above. 2. Nothing acute is seen on portable chest x-ray. Diagnostic code #2
[2021-09-08 17:27] VITALS: PULSE 118
[2021-09-08] MEDS ORDERED: amLODIPine 5 MG Tab PO ONE (17:47)
[2021-09-08 17:56] VITALS: BP 179/90
[2021-09-08] MEDS ORDERED: Prazosin 1 MG Cap PO SCH (21:00)
== END 2021-09-08 17:55 | disposition home or self-care (01) ==
LOC: JD.ED 13:58
DX: S00.83XA Contusion of other part of head, initial encounter (principal); I10 Essential (primary) hypertension; R79.89 Other specified abnormal findings of blood chemistry; E78.00 Pure hypercholesterolemia, unspecified; E11.9 Type 2 diabetes mellitus without complications; Z79.84 Long term (current) use of oral hypoglycemic drugs; Z79.899 Other long term (current) drug therapy; W18.09XA Striking against other object with subsequent fall, initial encounter; Y92.000 Kitchen of unspecified non-institutional (private) residence as the place of occurrence of the external cause
CPT/HCPCS: 36415; 70450; 71045; 80053; 81001; 82550; 82553; 82947; 83036; 84484; 85025; 85610; 85730; 86140; 93005; 96374; 99284; A9270; J0360

== ENCOUNTER 2021-09-09 17:56 | Emergency (ER) | payer MEDICARE, BC ==
[2021-09-09 18:39] VITALS: BP 161/86; PULSE 81
--- NOTE | 2021-09-09 19:52 | EDM.PDOC ---
ED HPI GENERAL MEDICAL PROBLEM - General Chief Complaint: General Stated Complaint: PAIN IN LEGS AND FEET Time Seen by Provider: 09/09/21 19:01 Source of Information: Reports: Patient, Family () History Limitations: Reports: Physical Impairment (Patient with advanced dementia) - History of Present Illness INITIAL COMMENTS - FREE TEXT/NARRATIVE: Mrs. Cutler is a pleasantly demented 86-year-old woman who, medical records indicate, was seen in this ED yesterday afternoon, 09/08/2021 after she had fallen in the kitchen and struck her left forehead, suffering a large hematoma to the area. She has a walker at home, but rarely uses it, and falls frequently. She is not on an anticoagulant. Her initial BP was found to be modestly elevated at 179/90, with tachycardia of 118 bpm, otherwise, she was hemodynamically stable, afebrile, saturating 100% on room air. Physical exam was remarkable for a large ecchymotic hematoma over the left frontal forehead, as well as ecchymosis to the superior aspect of her left shoulder and upper left scapula, which appeared to be old. Work-up included numerous blood tests, a urinalysis, a portable chest x-ray, CT of the head without contrast, and an ECG. Her blood glucose was found to be elevated at 341 (the patient has diabetes), and her troponin mildly elevated at 0.298, otherwise, her work-up was grossly unremarkable. Her CT scan found advanced senescent changes, consistent with age and dementia. The cause of her elevated troponin was not identified, as her ECG was unremarkable, and her CK-MB was within normal limits. Follow-up cardiac stress test was considered, but given her age and dementia, not felt appropriate and not desired by her . Her elevated blood pressure was treated with IV hydralazine and oral amlodipine, and she was discharged home with a prescription for amlodipine 10 mg po QHS, in addition to her usual lisinopril 20 mg po QAM. The patient is now brought back to the ED after complaining of bilateral feet pain or numbness, with difficulty walking and transferring. The patient's tells me that she only complained of it tonight, but on my evaluation, the patient denied having any pain, and did not know where she was, or why. It is unclear if it is both feet that are having problems, or just her left. The patient's tells me that she had complained of pain traveling up her entire left lower extremity, to include her left upper extremity. At triage, the patient's initial BP was found to be modestly elevated at 161/86, otherwise, she was hemodynamically stable, afebrile, saturating 95% on room air. Appears to be relatively comfortable, in no acute distress. According the patient's , other than her fall with injury, the patient has not had a recent fever, chills, sore throat, ear pain, nasal or sinus congestion, cough, dyspnea, chest pain, palpitations, nausea, vomiting, constipation, diarrhea, abdominal pain, urinary symptoms, recent weight gain or weight loss, recent bloody bowel movements or black bowel movements, recent joint aches, headaches, or rashes. I reviewed the PMHx/PSHx/SocHx, which was reviewed with the patient by the RN. The patient's PCP is at the [facility]. She was last seen there on 04/12/2021. Bilateral Feet Pain Score (Numeric/FACES): 10 - Related Data Allergies Allergy/AdvReac Type Severity Reaction Status Date / Time No Known Allergies Allergy Verified 09/09/21 18:39 Home Meds: Home Meds Lisinopril 20 mg PO DAILY 01/08/17 [History] Oxybutynin 5 mg PO DAILY 01/08/17 [History] atorvaSTATin Calcium [Atorvastatin Calcium] 20 mg PO BEDTIME 01/08/17 [History] glipiZIDE [Glipizide ER] 5 mg PO DAILY 01/08/17 [History] metFORMIN [Glucophage] 500 mg PO BID 01/08/17 [History] polyethylene glycoL 3350 [Miralax] 17 gm PO DAILY #1 container 01/13/21 [Rx] amLODIPine Besylate [Norvasc] 10 mg PO DAILY #30 tablet 09/08/21 [Rx] Past Medical History HEENT History: Reports: Impaired Vision, Other (See Below) Other HEENT History: excessive cerumen, wears glasses, upper denture Cardiovascular History: Reports: High Cholesterol, Hypertension Respiratory History: Reports: None Gastrointestinal History: Reports: None Genitourinary History: Reports: Other (See Below) Other Genitourinary History: UTI, overactive bladder OSTOMY RN History: Reports: Musculoskeletal History: Reports: Other (See Below) Other Musculoskeletal History: osteopenia Neurological History: Reports: Other (See Below) Other Neuro History: postherpetic neuralgia Psychiatric History: Reports: None Endocrine/Metabolic History: Reports: Diabetes, Type II, Osteoporosis, Vitamin D Deficiency Hematologic History: Reports: None Immunologic History: Reports: None Oncologic (Cancer) History: Reports: None Dermatologic History: Reports: None - Past Surgical History Head Surgeries/Procedures: Reports: None HEENT Surgical History: Reports: Tonsillectomy Female Surgical History: Reports: Section Social & Family History - Caffeine Use Caffeine Use: Reports: None - Living Situation & Occupation Living situation: Reports: , with Spouse Occupation: Retired ED ROS GENERAL - Review of Systems Review Of Systems: Comprehensive ROS is negative, except as noted in HPI. ED EXAM, GENERAL - Physical Exam Exam: See Below Exam Limited By: No Limitations General Appearance: Alert, WD/WN, No Apparent Distress Eye Exam: Bilateral Eye: EOMI, Other (Ecchymosis and swelling to left forehead extending to about the left eye) Ears: Normal External Exam, Hearing Grossly Normal Nose: Normal Inspection Throat/Mouth: Normal Inspection, Normal Lips, Normal Voice, No Airway Compromise Head: Normocephalic, Facial Swelling (and ecchymosis to left forehead) Neck: Normal Inspection Respiratory/Chest: No Respiratory Distress, Lungs Clear, Normal Breath Sounds, No Accessory Muscle Use Cardiovascular: Normal Peripheral Pulses, Regular Rate, Rhythm, No Edema, No Gallop, No JVD, No Murmur, No Rub Peripheral Pulses: 1+: Posterior Tibial (L), Posterior Tibial (R), Dorsalis Pedis (L), Dorsalis Pedis (R), 3+: Radial (L), Radial (R) GI/Abdominal: Normal Bowel Sounds, Soft, Non-Tender, No Organomegaly, No Distention, No Abnormal Bruit, No Mass Back Exam: Normal Inspection, Full Range of Motion, NT Extremities: Normal Range of Motion, No Pedal Edema, Normal Capillary Refill, Other (Ecchymosis to the dorsal aspect of the right foot over the 1st and 2nd MTP joints - tender. Dry skin to both feet, but no other visible abnormalities. Generalized tenderness to palpation of both feet.) Neurological: Alert, Disoriented, Other (No obvious motor deficits) Psychiatric: Normal Affect Skin Exam: Warm, Dry, Intact, Normal Color, No Rash Course - Vital Signs Last Recorded V/S: Last Vital Signs Temp 36.4 C 09/09/21 18:36 Pulse 81 09/09/21 18:36 Resp 13 09/09/21 18:36 BP 161/86 H 09/09/21 18:36 Pulse Ox 95 09/09/21 18:36 - Re-Assessments/Exams Free Text/Narrative Re-Assessment/Exam: 09/09/21 19:44 Other than having dry skin to both feet and a bruise to the dorsal aspect of the right foot, the patient's lower extremities appear to be uninjured. Her pain appears to be neuropathic, although it is unclear if it involves both lower extremities, or just the left, or exactly how high it goes. I explained to the patient's that neuropathic pain is difficult to treat. It is usually unresponsive to acetaminophen, NSAIDs, and even opioids. She may need to be placed on a neuroleptic medication such as gabapentin or Lyrica, however, those medications have side effects as well, especially in the elderly, and I am reluctant to prescribe such medication and then have her fall and injure herself even worse. Instead, I recommended that the patient's contact the [facility] first thing Saturday morning, to arrange to be seen and referred to a Neurologist. The patient's also inquired about long-term placement. While I am not an expert in medical finance, I explained, roughly, how Medicare works, and why we cannot place her into the hospital in order to arrange for a long-term (to say nothing of the fact that we are on diversion). This is also a good discussion to be held with the patient's PCP when they meet, as well, and I see no reason why both avenues cannot be pursued simultaneously. Departure - Departure Time of Disposition: 19:52 Disposition: Home, Self-Care 01 Condition: Good Clinical Impression: Neuropathic pain of both legs - Discharge Information *PRESCRIPTION DRUG MONITORING PROGRAM REVIEWED*: Not Applicable *COPY OF PRESCRIPTION DRUG MONITORING REPORT IN PATIENT PETE: Not Applicable Referrals: [facility] [Ordering Only Provider] - Forms: ED Department Discharge Additional Instructions: Mrs. Cutler was seen in the emergency room after complaining of pain and/or numbness to either both of her lower extremities, or just her left, traveling up the left side of her body. Based on her history and physical examination, she is most likely suffering from neuropathic (nerve) pain. As discussed, treatment of neuropathic pain can be difficult. Typically, medications such as acetaminophen (Tylenol), NSAIDs (aspirin, Advil, Motrin, Aleve), and even opioids (tramadol, [place], Percocet) do not help with neuropathic pain. Specialized medications for nerve pain may help, but have side effects, therefore we recommend that you follow-up with your PCP at the [facility] first thing Saturday to discuss referral to a Neurologist. At that visit, you can also discuss the option of long-term placement. If any other problems, please do not hesitate to return Mrs. Cutler to the ER. Sepsis Event Note (ED) - Evaluation Sepsis Screening Result: No Definite Risk
== END 2021-09-09 20:15 | disposition home or self-care (01) ==
LOC: JD.ED 17:56
DX: M79.605 Pain in left leg (principal); M79.604 Pain in right leg; E78.00 Pure hypercholesterolemia, unspecified; I10 Essential (primary) hypertension; E11.9 Type 2 diabetes mellitus without complications; Z79.899 Other long term (current) drug therapy; Z79.84 Long term (current) use of oral hypoglycemic drugs
CPT/HCPCS: 99283

== ENCOUNTER 2024-08-10 11:58 | Inpatient (IN) | payer MEDICARE, MEDICAID ==
[2024-08-10] MEDS ORDERED: Sodium Chloride 0.9% 10 ML Syringe FLUSH PRN (12:54)
[2024-08-10 13:46] LABS: BASOPHILS PERCENT AUTO 0.2 % (0.0-1.0); EOSINOPHILS ABSOLUTE AUTO 0.1 K/mm3 (0.0-0.4); EOSINOPHILS PERCENT AUTO 0.3 % (0.0-6.0); HEMOGLOBIN 9.9 gm/dl (12.0-16.0); IMMATURE GRAN ABSOLUTE AUTO 0.11 K/mm3 (0.00-0.05); IMMATURE GRAN PERCENT AUTO 0.7 % (0.0-0.4); LYMPHOCYTES ABSOLUTE AUTO 0.5 K/mm3 (1.0-4.8); LYMPHOCYTES PERCENT AUTO 3.1 % (24.0-44.0); MEAN CORPUSCULAR HEMOGLOBIN 30.5 pg (28.0-32.0); MEAN CORPUSCULAR HGB CONC 30.9 g/dl (32.0-36.0); MEAN CORPUSCULAR VOLUME 98.5 fl (83.0-99.0); MEAN PLATELET VOLUME 11.5 fl (9.4-12.3); MONOCYTES ABSOLUTE AUTO 0.5 K/mm3 (0.0-0.8); MONOCYTES PERCENT AUTO 2.7 % (0.0-8.0); NEUTROPHILS ABSOLUTE AUTO 15.6 K/mm3 (1.8-7.7); PLATELET COUNT,PLT 230 K/mm3 (150-400); RED BLOOD CELL COUNT 3.25 M/mm3 (4.10-5.30)
[2024-08-10 14:06] LABS: A/G RATIO 1.1 (1-2); ALBUMIN 3.7 g/dl (3.4-5.0); ANION GAP 19.7 (5-15); BILIRUBIN TOTAL 0.5 mg/dL (0.2-1.0); CALCIUM 10.5 mg/dL (8.5-10.1); EST CRCL DRUG DOSING (CG) 29.68 mL/min; POTASSIUM,K 4.7 mEq/L (3.5-5.1); PROTEIN TOTAL,TP 7.1 g/dl (6.4-8.2)
[2024-08-10] MEDS ORDERED: Morphine 2 MG/ML SYRINGE IVPUSH PRN (14:27)
[2024-08-10] MEDS ORDERED: Ondansetron 4 MG/2 ML SDV IV PRN (14:27)
[2024-08-10 15:13] LABS: INR 1.07; PROTHROMBIN TIME 11.3 SECONDS (9.7-12.0)
[2024-08-10] MEDS: Insulin Lispro 100 Unit/ML 3 ML KwikPen SUBCUT SCH (19:25)
[2024-08-10] MEDS: oxyCODONE 5 MG Tab PO PRN (20:53)
[2024-08-10 20:54] LABS: APPEARANCE,URINE SLT CLOUDY (Clear); BILIRUBIN,URINE NEGATIVE (Negative); COLOR,URINE YELLOW (Yellow); GLUCOSE,URINE NEGATIVE (Negative); KETONES,URINE 1+ (Negative); LEUKOCYTE ESTERASE,URINE NEGATIVE (Negative); NITRITE,URINE POSITIVE (Negative); OCCULT BLOOD,URINE TRACE-INTACT (Negative); PH,URINE 6.5 (5.0-8.0); PROTEIN,URINE 2+ (Negative)
[2024-08-10 21:54] LABS: BACTERIA,URINE MANY /hpf (FEW); CALCIUM OXALATE CRYSTALS,URINE FEW; MUCUS,URINE FEW /hpf (FEW); SQUAMOUS EPITHELIAL CELLS,UR 0-5 /hpf (0-5); WBC,URINE 0-5 /hpf (0-5)
[2024-08-11 07:07] LABS: BASOPHILS PERCENT AUTO 0.2 % (0.0-1.0); EOSINOPHILS PERCENT AUTO 0.1 % (0.0-6.0); HEMATOCRIT 29.8 % (37.0-47.0); HEMOGLOBIN 9.5 gm/dl (12.0-16.0); IMMATURE GRAN ABSOLUTE AUTO 0.04 K/mm3 (0.00-0.05); IMMATURE GRAN PERCENT AUTO 0.4 % (0.0-0.4); LYMPHOCYTES ABSOLUTE AUTO 1.2 K/mm3 (1.0-4.8); LYMPHOCYTES PERCENT AUTO 13.1 % (24.0-44.0); MEAN CORPUSCULAR HEMOGLOBIN 30.4 pg (28.0-32.0); MEAN CORPUSCULAR HGB CONC 31.9 g/dl (32.0-36.0); MEAN CORPUSCULAR VOLUME 95.2 fl (83.0-99.0); MEAN PLATELET VOLUME 11.6 fl (9.4-12.3); MONOCYTES ABSOLUTE AUTO 1.1 K/mm3 (0.0-0.8); MONOCYTES PERCENT AUTO 11.1 % (0.0-8.0); NEUTROPHILS ABSOLUTE AUTO 7.1 K/mm3 (1.8-7.7); NEUTROPHILS PERCENT AUTO 75.1 % (41.0-71.0); PLATELET COUNT,PLT 213 K/mm3 (150-400); RED BLOOD CELL COUNT 3.13 M/mm3 (4.10-5.30); WHITE BLOOD CELL COUNT,WBC 9.49 K/mm3 (3.9-11.3)
[2024-08-11 07:34] LABS: A/G RATIO 1.1 (1-2); ALBUMIN 3.7 g/dl (3.4-5.0); ANION GAP 16.1 (5-15); BILIRUBIN TOTAL 0.7 mg/dL (0.2-1.0); BUN/CREATININE RATIO 27.1 (14-18); CALCIUM 9.8 mg/dL (8.5-10.1); CREATININE 0.7 mg/dL (0.55-1.02); EST CRCL DRUG DOSING (CG) 41.01 mL/min; MAGNESIUM 1.4 mg/dL (1.8-2.4); POTASSIUM,K 4.1 mEq/L (3.5-5.1); PROTEIN TOTAL,TP 7.1 g/dl (6.4-8.2)
[2024-08-11] MEDS ORDERED: hydrALAZINE 20 MG/ML SDV IVPUSH PRN (08:09)
[2024-08-11] MEDS ORDERED: Labetalol 100 MG/20 ML MDV IVPUSH PRN (08:09)
[2024-08-11] MEDS ORDERED: Propofol 200 MG/20 ML SDV ONE ×2 (10:05→12:03)
[2024-08-11] MEDS ORDERED: fentaNYL 100 MCG/2 ML SDV ONE (10:06)
[2024-08-11] MEDS ORDERED: ceFAZolin 2 GM Vial ONE (10:07)
[2024-08-11] MEDS ORDERED: Lactated Ringers 1,000 ML ONE (10:49)
[2024-08-11] MEDS ORDERED: ePHEDrine 50 MG/ML SDV ONE (11:34)
[2024-08-11] MEDS: Bupivacaine 0.25% 10 ML SDV ONE (13:40)
[2024-08-11] MEDS: Sodium Chloride 0.9% 500 ML IV ONE (16:16)
[2024-08-11] MEDS: Donepezil 10 MG Tab PO SCH (17:04)
[2024-08-11] MEDS: Docusate Sodium 100 MG Cap PO SCH (17:04)
[2024-08-11] MEDS: Losartan 50 MG Tab PO SCH (17:04)
[2024-08-11] MEDS: Memantine 10 MG Tab PO SCH (17:05)
[2024-08-11] MEDS: amLODIPine 5 MG Tab PO SCH (17:06)
[2024-08-11] MEDS: atorvaSTATin 40 MG Tab PO SCH (18:59)
[2024-08-11] MEDS: Magnesium Sulfate/Water Premix 2 GM in Premix Bag 1 BAG IV ONE ×2 (19:41→19:51)
[2024-08-12 04:31] LABS: BASOPHILS PERCENT AUTO 0.1 % (0.0-1.0); EOSINOPHILS PERCENT AUTO 0.1 % (0.0-6.0); HEMATOCRIT 22.3 % (37.0-47.0); IMMATURE GRAN ABSOLUTE AUTO 0.12 K/mm3 (0.00-0.05); IMMATURE GRAN PERCENT AUTO 0.8 % (0.0-0.4); LYMPHOCYTES PERCENT AUTO 6.2 % (24.0-44.0); MEAN CORPUSCULAR HEMOGLOBIN 30.7 pg (28.0-32.0); MEAN CORPUSCULAR HGB CONC 31.4 g/dl (32.0-36.0); MEAN CORPUSCULAR VOLUME 97.8 fl (83.0-99.0); MEAN PLATELET VOLUME 11.5 fl (9.4-12.3); MONOCYTES ABSOLUTE AUTO 1.1 K/mm3 (0.0-0.8); MONOCYTES PERCENT AUTO 6.7 % (0.0-8.0); NEUTROPHILS ABSOLUTE AUTO 13.8 K/mm3 (1.8-7.7); NEUTROPHILS PERCENT AUTO 86.1 % (41.0-71.0); PLATELET COUNT,PLT 177 K/mm3 (150-400); RED BLOOD CELL COUNT 2.28 M/mm3 (4.10-5.30); WHITE BLOOD CELL COUNT,WBC 15.96 K/mm3 (3.9-11.3)
[2024-08-12 05:12] LABS: ANION GAP 17.6 (5-15); BILIRUBIN TOTAL 0.5 mg/dL (0.2-1.0); CALCIUM 8.7 mg/dL (8.5-10.1); CREATININE 1.3 mg/dL (0.55-1.02); EST CRCL DRUG DOSING (CG) 23.63 mL/min; MAGNESIUM 2.2 mg/dL (1.8-2.4); POTASSIUM,K 4.6 mEq/L (3.5-5.1)
[2024-08-12] MEDS ORDERED: cefTRIAXone 1 GM in Sodium Chloride 0.9% 50 ML IV SCH (08:30)
[2024-08-12 08:36] LABS: HEMATOCRIT 23.2 % (37.0-47.0)
[2024-08-12 08:37] LABS: HEMOGLOBIN 7.2 gm/dl (12.0-16.0)
[2024-08-12] MEDS ORDERED: Aspirin 81 MG Tab.EC PO SCH (09:00)
[2024-08-12] MEDS: cefTRIAXone 1 GM Vial IVPUSH SCH (09:20)
[2024-08-12] MEDS: Cyanocobalamin (Vitamin B12) 1,000 MCG Tab PO SCH (09:24)
[2024-08-12] MEDS: Aspirin 81 MG Tab.EC PO SCH (09:24)
[2024-08-12] MEDS: Albuterol/Ipratropium 3.0-0.5 MG/3 ML Neb Soln ONE (09:50)
[2024-08-12] MEDS ORDERED: Sodium Chloride 0.9% 250 ML IV SCH (10:30)
[2024-08-12] MEDS: Ferrous Sulfate 324 MG Tab.EC PO SCH (12:32)
[2024-08-12] MEDS: Cholecalciferol (Vitamin D3) 25 MCG Tab PO SCH (12:35)
[2024-08-12] MEDS: Acetaminophen 325 MG Tab PO PRN (21:18)
[2024-08-12] MEDS: Sodium Chloride 0.9% 1,000 ML IV SCH (21:41)
[2024-08-13 04:32] LABS: BASOPHILS PERCENT AUTO 0.1 % (0.0-1.0); HEMATOCRIT 23.8 % (37.0-47.0); HEMOGLOBIN 7.7 gm/dl (12.0-16.0); IMMATURE GRAN ABSOLUTE AUTO 0.11 K/mm3 (0.00-0.05); IMMATURE GRAN PERCENT AUTO 0.7 % (0.0-0.4); LYMPHOCYTES ABSOLUTE AUTO 1.5 K/mm3 (1.0-4.8); LYMPHOCYTES PERCENT AUTO 8.8 % (24.0-44.0); MEAN CORPUSCULAR HEMOGLOBIN 28.2 pg (28.0-32.0); MEAN CORPUSCULAR HGB CONC 32.4 g/dl (32.0-36.0); MEAN CORPUSCULAR VOLUME 87.2 fl (83.0-99.0); MEAN PLATELET VOLUME 11.8 fl (9.4-12.3); MONOCYTES ABSOLUTE AUTO 1.7 K/mm3 (0.0-0.8); MONOCYTES PERCENT AUTO 10.1 % (0.0-8.0); NEUTROPHILS ABSOLUTE AUTO 13.4 K/mm3 (1.8-7.7); NEUTROPHILS PERCENT AUTO 80.3 % (41.0-71.0); NRBC ABSOLUTE 0.05 (0.00-0.02); NRBC PERCENT 0.3 % (0.0-0.2); PLATELET COUNT,PLT 158 K/mm3 (150-400); RED BLOOD CELL COUNT 2.73 M/mm3 (4.10-5.30); WHITE BLOOD CELL COUNT,WBC 16.71 K/mm3 (3.9-11.3)
[2024-08-13 04:59] LABS: A/G RATIO 0.9 (1-2); ALBUMIN 2.7 g/dl (3.4-5.0); ANION GAP 16.7 (5-15); BILIRUBIN TOTAL 0.6 mg/dL (0.2-1.0); BUN/CREATININE RATIO 18.9 (14-18); CALCIUM 8.3 mg/dL (8.5-10.1); CREATININE 1.9 mg/dL (0.55-1.02); EST CRCL DRUG DOSING (CG) 16.16 mL/min; MAGNESIUM 1.9 mg/dL (1.8-2.4); POTASSIUM,K 3.7 mEq/L (3.5-5.1); PROTEIN TOTAL,TP 5.7 g/dl (6.4-8.2)
[2024-08-13 05:15] LABS: SLIDE REVIEW ABNORMAL SMEAR
[2024-08-13] MEDS: Sodium Chloride 0.9% 500 ML IV ONE (09:54)
[2024-08-13 10:02] LABS: IRON,FE 15 ug/dL (50-170); PERCENT FE SATURATION 7 % (20-55); TRANSFERRIN 184 mg/dL (202-364)
[2024-08-13 10:05] LABS: TOTAL IRON BINDING CAPACITY 230 ug/dL (100-400)
[2024-08-13] MEDS: Sodium Chloride 0.9% 1,000 ML IV SCH (12:57)
[2024-08-13] MEDS: Sodium Ferric Gluconate Cmplex 125 MG in Sodium Chloride 0.9% 100 ML IV ONE (14:29)
[2024-08-14 04:48] LABS: BASOPHILS PERCENT AUTO 0.3 % (0.0-1.0); EOSINOPHILS PERCENT AUTO 0.1 % (0.0-6.0); HEMATOCRIT 20.4 % (37.0-47.0); IMMATURE GRAN ABSOLUTE AUTO 0.33 K/mm3 (0.00-0.05); IMMATURE GRAN PERCENT AUTO 2.8 % (0.0-0.4); LYMPHOCYTES ABSOLUTE AUTO 1.1 K/mm3 (1.0-4.8); LYMPHOCYTES PERCENT AUTO 9.2 % (24.0-44.0); MEAN CORPUSCULAR HEMOGLOBIN 28.4 pg (28.0-32.0); MEAN CORPUSCULAR HGB CONC 31.9 g/dl (32.0-36.0); MEAN CORPUSCULAR VOLUME 89.1 fl (83.0-99.0); MEAN PLATELET VOLUME 11.7 fl (9.4-12.3); MONOCYTES ABSOLUTE AUTO 1.2 K/mm3 (0.0-0.8); MONOCYTES PERCENT AUTO 10.6 % (0.0-8.0); NRBC ABSOLUTE 0.14 (0.00-0.02); NRBC PERCENT 1.2 % (0.0-0.2); PLATELET COUNT,PLT 166 K/mm3 (150-400); RED BLOOD CELL COUNT 2.29 M/mm3 (4.10-5.30); WHITE BLOOD CELL COUNT,WBC 11.66 K/mm3 (3.9-11.3)
[2024-08-14 05:20] LABS: A/G RATIO 0.7 (1-2); ALBUMIN 2.1 g/dl (3.4-5.0); ANION GAP 12.2 (5-15); BILIRUBIN TOTAL 0.6 mg/dL (0.2-1.0); BUN/CREATININE RATIO 28.8 (14-18); CALCIUM 7.4 mg/dL (8.5-10.1); CREATININE 0.8 mg/dL (0.55-1.02); EST CRCL DRUG DOSING (CG) 38.44 mL/min; MAGNESIUM 1.7 mg/dL (1.8-2.4); POTASSIUM,K 3.2 mEq/L (3.5-5.1)
[2024-08-14 05:26] LABS: HEMOGLOBIN 6.5 gm/dl (12.0-16.0)
[2024-08-14] MEDS: Potassium Chloride 20 MEQ Tab.ER PO ONE (08:51)
[2024-08-14] MEDS: Sodium Ferric Gluconate Cmplex 250 MG in Sodium Chloride 0.9% 100 ML IV SCH (10:00)
[2024-08-14 11:50] LABS: FOLIC ACID 6.9 ng/mL (8.6-58.9)
[2024-08-14 12:33] LABS: RETICULOCYTE COUNT PERCENT 3.04 % (0.50-2.00)
[2024-08-14] MEDS: Folic Acid 1 MG Tab PO SCH (16:13)
[2024-08-14 20:12] LABS: HEMATOCRIT 30.1 % (37.0-47.0)
[2024-08-14 20:14] LABS: HEMOGLOBIN 9.8 gm/dl (12.0-16.0)
[2024-08-15 05:32] LABS: BASOPHILS ABSOLUTE AUTO 0.1 K/mm3 (0.0-0.2); BASOPHILS PERCENT AUTO 0.5 % (0.0-1.0); EOSINOPHILS PERCENT AUTO 0.4 % (0.0-6.0); HEMOGLOBIN 9.7 gm/dl (12.0-16.0); IMMATURE GRAN ABSOLUTE AUTO 0.42 K/mm3 (0.00-0.05); LYMPHOCYTES PERCENT AUTO 9.5 % (24.0-44.0); MEAN CORPUSCULAR HEMOGLOBIN 29.2 pg (28.0-32.0); MEAN CORPUSCULAR HGB CONC 32.3 g/dl (32.0-36.0); MEAN CORPUSCULAR VOLUME 90.4 fl (83.0-99.0); MEAN PLATELET VOLUME 10.7 fl (9.4-12.3); MONOCYTES ABSOLUTE AUTO 1.2 K/mm3 (0.0-0.8); NEUTROPHILS ABSOLUTE AUTO 7.9 K/mm3 (1.8-7.7); NEUTROPHILS PERCENT AUTO 74.6 % (41.0-71.0); NRBC ABSOLUTE 0.16 (0.00-0.02); NRBC PERCENT 1.5 % (0.0-0.2); PLATELET COUNT,PLT 196 K/mm3 (150-400); RED BLOOD CELL COUNT 3.32 M/mm3 (4.10-5.30)
[2024-08-15 05:55] LABS: ANION GAP 14.4 (5-15); BUN/CREATININE RATIO 17.1 (14-18); CALCIUM 8.1 mg/dL (8.5-10.1); CREATININE 0.7 mg/dL (0.55-1.02); EST CRCL DRUG DOSING (CG) 42.52 mL/min; MAGNESIUM 1.7 mg/dL (1.8-2.4); POTASSIUM,K 4.4 mEq/L (3.5-5.1)
[2024-08-15] MEDS: Magnesium Sulfate/Water Premix 4 GM in Premix Bag 1 BAG IV ONE (10:09)
[2024-08-15 14:24] VITALS: BP 138/60; PULSE 76
[2024-08-19] MEDS ORDERED: Ferrous Sulfate 324 MG Tab.EC PO SCH (12:00)
== END 2024-08-15 14:17 | DRG 481 ==
LOC: JD.ED 11:58 → JD.MS 13:42
PROVIDERS: ADMIT Student in an Organized Health Care Education/Training Program; ATTEND Student in an Organized Health Care Education/Training Program
PROC: 0QS634Z Reposition Right Upper Femur with Internal Fixation Device, Percutaneous Approach (ICD-10-PCS; principal; 2024-08-11 12:00)
DX: S72.141A Displaced intertrochanteric fracture of right femur, initial encounter for closed fracture (principal); N17.9 Acute kidney failure, unspecified; S22.41XA Multiple fractures of ribs, right side, initial encounter for closed fracture; N30.01 Acute cystitis with hematuria; E11.9 Type 2 diabetes mellitus without complications; Z66 Do not resuscitate; H54.7 Unspecified visual loss; E78.00 Pure hypercholesterolemia, unspecified; I10 Essential (primary) hypertension; M81.0 Age-related osteoporosis without current pathological fracture; F03.90 Unspecified dementia, unspecified severity, without behavioral disturbance, psychotic disturbance, mood disturbance, and anxiety; N32.81 Overactive bladder; D72.829 Elevated white blood cell count, unspecified; E11.69 Type 2 diabetes mellitus with other specified complication; D64.9 Anemia, unspecified; E83.42 Hypomagnesemia; T17.908A Unspecified foreign body in respiratory tract, part unspecified causing other injury, initial encounter; I95.81 Postprocedural hypotension; E53.8 Deficiency of other specified B group vitamins; E87.6 Hypokalemia; Z79.899 Other long term (current) drug therapy; Z79.82 Long term (current) use of aspirin; Z79.4 Long term (current) use of insulin; Z86.73 Personal history of transient ischemic attack (TIA), and cerebral infarction without residual deficits; Z90.89 Acquired absence of other organs; Z79.84 Long term (current) use of oral hypoglycemic drugs; W19.XXXA Unspecified fall, initial encounter
CPT/HCPCS: 36415; 36430; 51798; 71045; 71045-26; 72170; 72170-26; 73552-26-RT; 73552-RT; 76000; 76000-26; 80048; 80053; 81001; 82607; 82746; 82947; 83540; 83735; 84466; 85014; 85018; 85025; 85045; 85610; 86850; 86900; 86901; 86922; 87086; 87088; 87186; 87641; 93005; 93010; 94640; 94760; 94761; 97110-GP; 97161-GP; 97530-GP; 99284; 99285; A9270-GY; C1713; C1776; J0665; J0690; J0696; J1815; J2704; J2916; J3010; J3475; J3490; J7030; J7120; J7620-GY; P9016